=== PATIENT | female | born 1955 | race Caucasian/White ===

== ENCOUNTER 2020-12-17 08:57 | Inpatient (IN) ==
--- NOTE | 2020-12-02 08:49 | PAT Medication Instructions ---
Medication Instructions Date of Service December 02, 2020 Home Medications acetaminophen [Tylenol Extra Strength] 1,000 mg PO Q6H PRN baclofen 10 mg PO BID PRN gabapentin 100 mg PO QAM gabapentin 300 mg PO HS levetiracetam [Keppra] 1,000 mg PO BID meloxicam 15 mg PO QAM omeprazole 20 mg PO QAM peg 400-propylene glycol (PF) [Systane (PF)] 2 drp OPHTHALMIC (EYE) BID PRN ASK your surgeon for instructions meloxicam 15 mg PO QAM DO NOT take the morning of surgery baclofen 10 mg PO BID PRN Take morning of surgery With a small sip of water, OTHERWISE NOTHING TO EAT OR DRINK AFTER MIDNIGHT: acetaminophen [Tylenol Extra Strength] 1,000 mg PO Q6H PRN (okay to take up to 4 hours prior to surgery if needed) gabapentin 100 mg PO QAM levetiracetam [Keppra] 1,000 mg PO BID omeprazole 20 mg PO QAM peg 400-propylene glycol (PF) [Systane (PF)] 2 drp OPHTHALMIC (EYE) BID PRN (if needed) Take evening before surgery acetaminophen [Tylenol Extra Strength] 1,000 mg PO Q6H PRN (if needed) baclofen 10 mg PO BID PRN (if needed) gabapentin 300 mg PO HS levetiracetam [Keppra] 1,000 mg PO BID peg 400-propylene glycol (PF) [Systane (PF)] 2 drp OPHTHALMIC (EYE) BID PRN (if needed) Other Notes If you have any questions please call us at [phone] or [phone] or [phone] or [phone]
--- NOTE | 2020-12-04 09:42 | Anesthesiology Consultation ---
Date of Service December 04, 2020 Assessment & Plan (1) Encounter for pre-operative examination: Per assessment on 12/04: Travel screen- Lives in [place]. Uses PPE. No known COVID-19 positive contacts or current COVID-19 related symptoms. Surgeon arranging preop COVID testing (franc 2/; [facility]). Awaiting results. Chart Review Chart Review: Acceptable Risk for Surgery and Patient seen in Pre Admission Test ing Teaching & Discussion Pre-Anesthesia Teaching/Discussion Notes: Instructed NPO after midnight before surgery,except medications with 15 cc of water. Medication instructions provided according to the PAT guidelines. History Surgery Operation Date: 12/17/20 10:05 Proposed Procedures p L4-S1 Decompression and Fusion, Spinal Cord Monitoring - Nelson Cassidy DO Height/Weight Height: 5 ft 5 in Weight: 100.3 kg Allergies Allergy/AdvReac Type Severity Reaction Status Date / Time Sulfa (Sulfonamide Allergy Unknown Itching Verified 12/04/20 08:39 Antibiotics) codeine AdvReac Unknown N/V Verified 12/04/20 08:39 Medications Home Medications Medication Instructions Recorded Confirmed Last Taken acetaminophen [Tylenol Extra 1,000 mg PO Q6H PRN 11/18/20 11/18/20 Unknown Strength] gabapentin 100 mg PO QAM 11/18/20 11/18/20 Unknown gabapentin 300 mg PO HS 11/18/20 11/18/20 Unknown levetiracetam [Keppra] 1,000 mg PO BID 11/18/20 11/18/20 Unknown meloxicam 15 mg PO QAM 11/18/20 11/18/20 Unknown omeprazole 20 mg PO QAM 11/18/20 11/18/20 Unknown peg 400-propylene glycol (PF) 2 drp OPHTHALMIC (EYE) BID PRN 11/18/20 11/18/20 Unknown [Systane (PF)] Past Medical History Medical History GERD (gastroesophageal reflux disease) controlled History of seizure single seizure post-op brain meningioma excision (1997), controlled on Keppra, follows with Dr. Delgado Kidney stones Obesity Osteoarthritis SVT (supraventricular tachycardia) hx ablation 10 years ago, no issues since Temporomandibular joint disorder hx, no locking Exercise / Class Metabolic Activity II 4-5 Yardwork/Stairs/Walk up hill (one flight of stairs (no chest pain/no sob)) Past Family History Family History Sister Family hx of colon cancer Past Surgical History Surgical History H/O prior ablation treatment History of arthroscopy R/L knee History of brain surgery for meningioma (1997) History of cardiac cath 10+ year ago > no stents History of section x4 History of cholecystectomy History of colonoscopy History of tonsillectomy Past Anesthesia History No Hx of Anesthesia Complications and No Family Hx of Anesthesia Complications History of PONV No Hx of PONV and No Hx of Motion Sickness Social History Smoking Status: Never smoker Do You Dip or Chew Tobacco: No Hx Alcohol Use: No Hx Substance Use: No Review of Systems Rare palpitations (no recent issues). Patient denies chest pain, shortness of breath, dyspnea on exertion, fever, chills, cough, wheezing. Physical Exam Vital Signs VITALS BP 146/86 P 74 TEMP 98.4 SP02 96%RA RESP 16 PHYSICAL Full neck and c-spine range of motion (mild cervicalgia with extension, per patient this is a chronic issue). Full TMJ range of motion. TMD 3 finger breaths Mallampati Score 2 Dentition: intact Lungs: clear throughout to auscultation Cardiac: regular rate and rhythm, no murmurs noted Spine: normal Carotid arteries: negative bruit Extremities: no edema Testing Laboratory Results 12/04/20 10:13 12/04/20 10:13 PT 11.4 Seconds (9.0-12.0) 12/04/20 10:13 INR 1.1 (0.9-1.1) 12/04/20 10:13 APTT 27.4 Seconds (21.0-31.0) 12/04/20 10:13 Urine Color Yellow 12/04/20 10:13 Urine Appearance Clear (Clear) 12/04/20 10:13 Urine pH 7.0 (4.5-7.5) 12/04/20 10:13 Ur Specific [place] 1.015 (1.000-1.030) 12/04/20 10:13 Urine Protein Negative (Negative) 12/04/20 10:13 Urine Glucose (UA) Negative (Negative) 12/04/20 10:13 Urine Ketones Negative (Negative) 12/04/20 10:13 Urine Nitrite Negative (Negative) 12/04/20 10:13 Ur Leukocyte Esterase Negative (Negative) 12/04/20 10:13 Blood Type A Positive 12/04/20 10:13 Antibody Screen NEGATIVE 12/04/20 10:13 Electrocardiogram Date: 12/04/20 Findings: + NSR @ (70) Chest X-Ray Date: 12/04/20 FINDINGS: The lungs are clear. Cardiac silhouette is normal in size. No pleural effusions. No pneumothorax. Mildly tortuous thoracic aorta. Prior cholecystectomy. IMPRESSION: No acute process.
[2020-12-04 10:50] LABS: Basophils # (auto) 0.02 K/uL (0-0.2); Basophils % (auto) 0.4 %; Eosinophils # (auto) 0.18 K/uL (0-0.5); Eosinophils % (auto) 3.9 %; Hematocrit (blood only) 41.9 % (37-47); Hemoglobin 14.2 g/dL (12.0-16.0); Lymphocytes # (auto) 1.17 K/uL (1.2-3.4); Lymphocytes % (auto) 25.7 %; Mean Corpuscular Hemoglobin 29.7 pg (25-34); Mean Corpuscular Hgb Conc 33.9 g/dL (32-36); Mean Corpuscular Volume 87.7 fL (80-100); Mean Platelet Volume 10.1 fL (7.4-10.4); Monocytes % (auto) 6.6 %; Neutrophils # (auto) 2.89 K/uL (1.4-6.5); Neutrophils % (auto) 63.4 %; Platelet Count 226 K/uL (130-400); RDW Coefficient of Variation 12.3 % (11.5-14.5); RDW Standard Deviation 39.4 fL (36.4-46.3); Red Blood Count 4.78 M/uL (4.2-5.4); White Blood Count 4.56 K/uL (4.8-10.8)
[2020-12-04 10:54] LABS: Appearance Urine Clear (Clear); Bilirubin Urine Negative (Negative); Blood Urine Negative (Negative); Color Urine Yellow; Glucose Urine UA Negative (Negative); Ketones Urine Negative (Negative); Leukocyte Esterase Urine Negative (Negative); Nitrite Urine Negative (Negative); Protein Urine Negative (Negative); Specific Gravity Urine 1.015 (1.000-1.030); Urobilinogen Urine Negative (Negative)
[2020-12-04 10:59] LABS: BUN Creatinine Ratio 33.5 (10-20); Calcium 8.9 mg/dl (8.5-10.1); Creatinine Clr Calc Pharmacy 101.7 ml/min; Est GFR (African American) 107.6; Est GFR (Non-African American) 92.8; Potassium 4.3 mmol/L (3.5-5.1)
[2020-12-04 11:01] LABS: INR 1.1 (0.9-1.1); Partial Thromboplastin Time 27.4 Seconds (21.0-31.0); Prothrombin Time 11.4 Seconds (9.0-12.0)
--- NOTE | 2020-12-04 11:03 | XRay Report ---
XR chest Pre-admission PA/Lat HISTORY: Preop. COMPARISON: None. FINDINGS: The lungs are clear. Cardiac silhouette is normal in size. No pleural effusions. No pneumot horax. Mildly tortuous thoracic aorta. Prior cholecystectomy. IMPRESSION: No acute process. ACT 112: Negative or not required by law. Electronically signed by: Armaan Tan M.D. 12/04/2020 11:02 AM
--- NOTE | 2020-12-04 16:56 | Electrocardiogram Report ---
Test Reason : Blood Pressure : / mmHG Vent. Rate : 070 BPM Atrial Rate : 070 BPM P-R Int : 160 ms QRS Dur : 088 ms QT Int : 388 ms P-R-T Axes : 064 074 054 degrees QTc Int : 419 ms Normal sinus rhythm Normal ECG No previous ECGs available Confirmed by Andrew Noble ([id number]) on 12/04/2020 4:56:18 PM Referred By: Nelson Cassidy Confirmed By:Waldo Noble
[~2020-12-17 08:57] MED LIST: ACETAMINOPHEN 500 MG TAB PO SCH; CeleBREX 200 MG CAP PO SCH; DEXAMETHASONE SOD INJ 4 MG/ML VIAL ONE; GABAPENTIN 300 MG CAP PO SCH; GLYCOPYRROLATE 0.2 MG/ML VIAL ONE; LIDOCAINE HCL 2% 2 ML VIAL/AMP(20MG/ML) INFIL ONE; LR 15ML/HR IV SCH; MIDAZOLAM HCL 1 MG/ML 2ML VIAL ONE; NEOSTIGMINE METHYLSULFATE 1 MG/ML 10ML VIAL ONE; ONDANSETRON INJ 2 MG/ML 2 ML VIAL ONE; PROPOFOL IV EMULSION 10 MG/ML 20 ML VIAL IV ONE; ROCURONIUM BROMIDE 10 MG/ML 5 ML VIAL IV ONE; ceFAZolin 2000MG 2,000 MG/15 ML SYR IV SCH; ePHEDrine sulfate 50 MG/ML SYR ONE; fentaNYL citrate 100 MCG/2 ML VIAL ONE
[2020-12-17] MEDS ORDERED: MEPERIDINE HCL 25 MG/ML CARP/VIAL IV PRN (09:14)
[2020-12-17] MEDS ORDERED: LABETALOL HCL IV 5 MG/ML 20ML IV PRN (09:14)
[2020-12-17] MEDS ORDERED: ePHEDrine sulfate 50 MG/ML AMP IV PRN (09:14)
[2020-12-17] MEDS ORDERED: ATROPINE SULFATE 0.1 MG/ML 10ML SYR IV PRN (09:14)
[2020-12-17] MEDS ORDERED: PHENYLEPHRINE 100MCG/ML 5ML SYR IV PRN (09:14)
[2020-12-17] MEDS ORDERED: ONDANSETRON INJ 2 MG/ML 2 ML VIAL IV PRN ×2 (09:14→15:01)
--- NOTE | 2020-12-17 10:12 | History & Physical Bridge Note ---
Date of Service December 17, 2020 History & Physical Bridge Note I have examined the patient, reviewed the History & Physical and in the interval since the performance of the History & Physical I have noted the following changes of clinical significance: no changes noted
--- NOTE | 2020-12-17 10:13 | History & Physical Report ---
Date of Service December 17, 2020 Assessment & Plan (1) Neurogenic claudication due to lumbar spinal stenosis: Admission and Anticipated Discharge Date Admission Date: L4-S1 decompression fusion History of Present Illness Chief Complaint: Back and bilateral leg pain Primary Care Provider: Daniel Lindquist MD This is a 65-year-old female who presents with chronic persistent back and bilateral leg pain. After failing course of nonoperative care is here for surgical invention. Allergies Allergy/AdvReac Type Severity Reaction Status Date / Time Sulfa (Sulfonamide Allergy Unknown Itching Verified 12/17/20 09:23 Antibiotics) codeine AdvReac Unknown N/V Verified 12/17/20 09:23 Home Medications Medication Instructions Recorded Confirmed Type acetaminophen [Tylenol Extra 1,000 mg PO Q6H PRN 11/18/20 12/17/20 History Strength] gabapentin 100 mg PO QAM 11/18/20 12/17/20 History gabapentin 300 mg PO HS 11/18/20 12/17/20 History levetiracetam [Keppra] 1,000 mg PO BID 11/18/20 12/17/20 History meloxicam 15 mg PO QAM 11/18/20 12/17/20 History omeprazole 20 mg PO QAM 11/18/20 12/17/20 History peg 400-propylene glycol (PF) 2 drp OPHTHALMIC (EYE) BID PRN 11/18/20 12/17/20 History [Systane (PF)] Past Med/Surg History Medical History GERD (gastroesophageal reflux disease) controlled History of seizure single seizure post-op brain meningioma excision (1997), controlled on Keppra, follows with Dr. Delgado Kidney stones Obesity Osteoarthritis SVT (supraventricular tachycardia) hx ablation 10 years ago, no issues since Temporomandibular joint disorder hx, no locking Surgical History H/O prior ablation treatment History of arthroscopy R/L knee History of brain surgery for meningioma (1997) History of cardiac cath 10+ year ago > no stents History of section x4 History of cholecystectomy History of colonoscopy History of tonsillectomy Family History Sister Family hx of colon cancer Social History Smoking Status: Never smoker Second Hand Exposure: No; Do You Dip or Chew Tobacco: No; Hx Alcohol Use: No Hx Substance Use: No Preferred Language: Uzbek Communication Ability: Effective Cable Assembler Required: No Beliefs That Will Affect Care: None Current Living Situation: Spouse Other Information That Helps Us Care for You: No Feels Safe at Home: Yes Safety Concerns: Feels Safe At This Time Assistive Devices: Glasses Physical Exam Physical Exam: Patient is alert and oriented Heart regular rhythm Lungs clear to auscultation Results & Data ([facility]) Vital Signs (Past 12 Hours) Vital Signs Temp Pulse Resp BP Pulse Ox 12/17/20 09:37 36.5 C 92 H 20 183/90 H 97
[2020-12-17] MEDS ORDERED: BACITRACIN INJ 50,000 UNIT VIAL ONE (10:26)
[2020-12-17] MEDS ORDERED: BUPIVACAINE/EPINEPHRINE 0.5% MPF 1:200,000 30 ML VIAL ONE (10:26)
[2020-12-17] MEDS ORDERED: PHENYLEPHRINE HCL 10 MG/ML VIAL ONE (11:07)
[2020-12-17] MEDS ORDERED: ePHEDrine sulfate 50 MG/ML AMP ONE (11:31)
[2020-12-17] MEDS ORDERED: fentaNYL citrate 100 MCG/2 ML VIAL ONE (12:50)
--- NOTE | 2020-12-17 13:19 | Fluoroscopy Report ---
INTRAOPERATIVE RADIOGRAPHS CLINICAL HISTORY: L4-S1 spinal fusion. Fluoroscopy time: 33 seconds. FINDINGS: 2 spot fluoroscopic views of the lumbar spine are presented. There has been discectomy at L 4-L5 and L5-S1 with laminectomy and posterior fusion from L4-S1. Interpedicular screws are present at all levels. The orthopedic hardware appears intact. IMPRESSION: Intraoperative images from L4-S1 spinal fusion as above. Electronically signed by: Antoine Romo M.D. 12/17/2020 1:18 PM
--- NOTE | 2020-12-17 13:23 | Operative Report ---
Post Operative Report Pre & Post Diagnosis Operation Date: 12/17/20 10:25 Pre-Op Diagnosis: Spinal Stenosis, Lumbar Region with Neurogenic Claudication Spondylolisthesis L4-L5 Post-Op Diagnosis: Spinal Stenosis, Lumbar Region with Neurogenic Claudication Spondylolisthesis L4-L5 I identified the patient and participated in the time-out.: Yes Procedure Operation Date: 12/17/20 10:25 Actual Procedures #1 lumbar decompression bilateral medial facetectomies and foraminotomies L3-4, L4-5 and L5-S1 peer #2 posterior spinal fusion L4-5 L5-S1. 3 patient posterior instrumentation L4-5 L5-S1 per #4 interbody fusion L4-5 L5-S1. #5 placement peek cage 11 x 22 mm at L4-5 L5-S1. #6 placement locally harvested morselized autograft in the posterior gutters. #7 placement infuse collagen sponge, master graft and posterior gutters and ostial amp interbody space. Surgeon Nelson Cassidy, DO Band And Cuff Cutter None Estimated Blood Loss 900 Findings See Below The patient is 5 foot 5 inches tall weighing over 100 kg with a BMI in excess of 36. Body habitus combined with an EBL greater than 100 cc created significant technical difficulty requiring her deepest retractors longus instruments in order to perform her procedure. This had at least 50% increase to the operative time. Specimens None Indications This is a 65-year-old female who presents with above-mentioned diagnosis after failing course of nonoperative care she is here for surgical intervention. Description of Procedure Patient met with properly case cussed the question just with them and patient was taken back to op suite underwent an patient placed in prone position the [place] table top Mario frame. All bony prominences well-padded eyes inspected to ensure no external pressure placed upon them. This point the lumbar spine was prepped and draped in a sterile fashion. Sharp dissection with the assistance of Bovie cautery was performed down to and exposing the lamina and transverse processes of L4-L5 and the sacral ala bilaterally. From a caudal cephalad fashion complete laminectomy of L5 L4 and partial laminectomy of L3 was performed including bilateral medial facetectomies and foraminotomies addressing severe spinal stenosis. Pedicle screws were then placed in L4-L5 and S1 b ilaterally with assistance of fluoroscopy and the proper sized mian placed. By way of a transfemoral approach and left complete discectomy of L5-S1 was performed endplates curetted to subcortical bleeding bone and open by 26 mm peek cage filled osteobone graft tapped in position. Then proceeded L4-[address] of a transforaminal portion left complete discectomy performed endplates curetted to subcortical mean bone and again 11 x 26 mm peek cage filled with osteobone graft tapped in position. Rods were then locked in final position bilaterally. The transverse processes of L4-L5 and sacral ala burred to subcortical bleeding bone. Infuse collagen sponge master graft local autograft was placed in posterior gutters. 15 round NATO drain inserted. The incision was then closed with 1 Vicryl the fascia 2-0 Vicryl subcutaneously and 4 Monocryl for final skin closure. Steri-Strip sterile dressings placed. Patient waken taken PACU stable condition. Please note spinal cord monitoring was utilized at the procedure no changes noted. I attest to the content of the Intraoperative Record and any orders documented therein. Any exceptions are noted below.
[2020-12-17] MEDS: fentaNYL citrate 100 MCG/2 ML VIAL IV PRN ×4 (13:37→13:53)
[2020-12-17] MEDS: HYDROmorphone INJ 1 MG/ML SYRINGE IV PRN ×6 (13:58→14:23)
[2020-12-17 14:14] LABS: Hematocrit (blood only) 34.4 % (37-47); Hemoglobin 11.6 g/dL (12.0-16.0)
--- NOTE | 2020-12-17 14:53 | Anesthesiology Progress Note ---
Date of Service December 17, 2020 Anesthesia Post Procedure Vital Signs Vital Signs: Temp Pulse Pulse Resp BP BP Pulse Ox 12/17/20 14:40 36.2 C L 69 16 108/60 98 12/17/20 14:30 64 17 102/54 L 100 12/17/20 14:20 74 16 114/62 98 12/17/20 14:10 67 15 118/64 93 12/17/20 14:00 64 12 111/60 100 12/17/20 13:50 70 14 114/72 100 12/17/20 13:40 70 11 L 125/64 100 12/17/20 13:30 36.1 C L 78 16 147/105 H 99 12/17/20 09:37 36.5 C 92 H 20 183/90 H 97 Pain Intensity Back: Pain Intensity: 2 Transfer of Care Handoff Completed per policy Notes Mental Status: alert / awake / arousable Patient Amnestic to Procedure: Yes Nausea / Vomiting: adequately controlled Pain: adequately controlled Airway Patency, RR, SpO2: stable & adequate BP & HR: stable & adequate Hydration State: stable & adequate Anesthetic Complications: no major complications apparent and Pt Satisfied with anesthetic care Notes: The patient is awake and comfortable. Postop hgb is 11.6.
[2020-12-17] MEDS ORDERED: DO NOT ADMINISTER FLU VACCINE PRN (15:01)
[2020-12-17] MEDS ORDERED: PROMETHAZINE HCL 12.5 MG in SODIUM CHLORIDE 0.9% 50 ML IV PRN (15:01)
[2020-12-17] MEDS ORDERED: METOCLOPRAMIDE HCL INJ 5 MG/ML 2 ML VIAL IV PRN (15:01)
[2020-12-17] MEDS ORDERED: MAGNESIUM HYDROXIDE SUSP 30 ML UDC PO PRN (15:01)
[2020-12-17] MEDS ORDERED: LORazepam 0.5 MG/1 ML VIAL IV PRN (15:01)
[2020-12-17] MEDS ORDERED: hydrOXYzine HCl 25 MG TAB PO PRN (15:01)
[2020-12-17] MEDS ORDERED: SOD PHOSPHATE/SOD BIPHOSPHATE ENEMA 132 ML BTL PR PRN (15:01)
[2020-12-17] MEDS ORDERED: HYDROmorphone INJ 0.5 MG/0.5 ML SYR IV PRN (15:01)
[2020-12-17] MEDS ORDERED: FAMOTIDINE 20 MG TAB PO PRN (15:01)
[2020-12-17] MEDS ORDERED: ALUMINUM/MAGNESIUM SUSP 30 ML UDC PO PRN (15:01)
[2020-12-17] MEDS ORDERED: ONDANSETRON 4 MG OD TAB PO PRN (15:01)
[2020-12-17] MEDS ORDERED: ACETAMINOPHEN 1,000 MG/100 ML VIAL IV PRN (15:01)
[2020-12-17] MEDS ORDERED: traMADol HCL 50 MG TABLET PO PRN (15:01)
[2020-12-17] MEDS ORDERED: NALOXONE HCL 0.4 MG/1 ML VIAL/CARP IV PRN (15:01)
[2020-12-17] MEDS ORDERED: DO NOT ADMINISTER PNEUMOCOCCAL VACCINE PRN (15:01)
[2020-12-17] MEDS ORDERED: LORazepam 0.5 MG TAB PO PRN (15:01)
[2020-12-17] MEDS ORDERED: diphenhydrAMINE Capsule 25 MG CAP PO PRN (15:01)
[2020-12-17] MEDS ORDERED: HYDROmorphone INJ 1 MG/ML SYRINGE IV PRN (15:01)
[2020-12-17] MEDS ORDERED: ARTIFICIAL TEARS OP PRN (15:30)
[2020-12-17] MEDS: SODIUM CHLORIDE 0.9% 1000ML 1,000 ML IV SCH ×2 (15:46→21:33)
[2020-12-17] MEDS: ceFAZolin 2000MG 2,000 MG/15 ML SYR IV SCH (17:46)
[2020-12-17] MEDS: oxyCODONE HCL IR 5 MG TAB (IMMEDIATE RELEASE) PO PRN ×2 (17:46→23:28)
--- NOTE | 2020-12-17 17:56 | Consultation ---
Date of Consultation December 17, 2020 Assessment & Plan (1) Neurogenic claudication due to lumbar spinal stenosis: s/p L4-S1 spinal fusion, POD #0 Dr. Cassidy ebl 900ml, NATO drain 190ml tolerated procedure well pain/wound management per ortho activity and therapy as directed by ortho wean 02 as able, encourage incentive spirometry monitor h&H (2) Acute blood loss anemia: pre op H&H 14.2/41.9 post op 11.6/34.4 EBL 900ml monitor daily transfuse hgb < 7.0 or symptomatic (3) History of seizure: 1 episode of seizure s/p brain surgery controlled with keppra D/C tramadol as it can lower seizure threshold (4) GERD (gastroesophageal reflux disease): continue PPI (5) Obesity: BMI 36.8 encourage diet and lifestyle modifications Dispo: per Dr. Cassidy Primary: Dr. Lindquist FULL CODE Pt was seen and examined in collaboration with Dr. Alonzo, please see addendum starting 12/18/20 pt will be under the care of Dr. Smith Thank you for this consultation. We will follow the patient with you during their hospital stay. You [facility] a [facility] via pager @ [phone]. Supervising Physician Co-Signing Physician Notes Pt seen and examined by me, care coordinated with Malathi Marshall PA-C, pls refer to her note above for further detail. Pt is a 65 y/o F w/ hx of meningioma s/p resection with seizure post op controlled on Keppra, GERD, neuropathy, hx of nephrolithiasis, chronic neck pain with radiculopathy who presented for elective lumbar procedure by Dr. Cassidy. She underwent L4-S1 spinal fusion. She tolerated procedure well. She had significant blood loss with 900ml estimated. No chest pain, sob, cough. Pt is sitting up in bed, in NAD. She is awake and answering questions appropriately, currently using supp. O2. Lung CTAB no wheezing, rhonchi, crackles. Heart sounds regular. Abdomen soft, nontender, nondistended. Moves extremities spontaneously. Skin is warm and dry, well perfused. Acute blood loss anemia - monitor H&H, try to wean off O2, monitor resp. status. Dangelo Alonzo MD History of Present Illness Requesting Physician: Dr. Cassidy Reason for Consultation: Post op medical management Attending Physician: Nelson Cassidy DO History of Present Illness This is a 65 yr old F who has a significant PMH of meningioma s/p resection with seizure post op controlled on Keppra, GERD, neuropathy, hx of nephrolithiasis, chronic neck pain with radiculopathy who presents for elective lumbar procedure by Dr. Cassidy. She underwent L4-S1 spinal fusion. She tolerated procedure well. She had significant blood loss with 900ml estimated. Currently c/o R dry eye, burning sensation. Denies vision loss, blurry/double vision, pain with eye movement. Hx of dry eye and just took artifical tear eye gtts with mild relief. Denies f/c/s, dizziness, lightheaded, chest pain, sob, cough, n/v/d, or abdominal pain. She has a ramirez cath in place. She is tolerating a liquid diet. No recent seizure hx, last was post op. Allergies Allergy/AdvReac Type Severity Reaction Status Date / Time Sulfa (Sulfonamide Allergy Unknown Itching Verified 12/17/20 09:23 Antibiotics) codeine AdvReac Unknown N/V Verified 12/17/20 09:23 Home Medications Medication Instructions Recorded Confirmed Type Systane (PF) 2 drp OPHTHALMIC (EYE) BID PRN 11/18/20 12/17/20 History acetaminophen 1,000 mg PO Q6H PRN 11/18/20 12/17/20 History gabapentin 100 mg PO QAM 11/18/20 12/17/20 History gabapentin 300 mg PO HS 11/18/20 12/17/20 History levetiracetam [Keppra] 1,000 mg PO BID 11/18/20 12/17/20 History meloxicam 15 mg PO QAM 11/18/20 12/17/20 History omeprazole 20 mg PO QAM 11/18/20 12/17/20 History oxycodone 5 mg PO Q6H PRN #30 tab 12/18/20 Rx tramadol 50 mg PO Q6H PRN #30 tab 12/18/20 Rx Patient History Medical History (Updated 12/17/20 @ 18:08 by Malathi Marshall PA-C) GERD (gastroesophageal reflux disease) controlled History of seizure single seizure post-op brain meningioma excision (1997), controlled on Keppra, follows with Dr. Delgado Kidney stones Obesity Osteoarthritis SVT (supraventricular tachycardia) hx ablation 10 years ago, no issues since Temporomandibular joint disorder hx, no locking Surgical History H/O prior ablation treatment History of arthroscopy R/L knee History of brain surgery for meningioma (1997) History of cardiac cath 10+ year ago > no stents History of section x4 History of cholecystectomy History of colonoscopy History of tonsillectomy Family History Sister Family hx of colon cancer Social History Smoking Status: Never smoker Second Hand Exposure: No; Do You Dip or Chew Tobacco: No; Hx Alcohol Use: No Hx Substance Use: No Preferred Language: Belarusian Communication Ability: Effective Circular Shear Operator Required: No Beliefs That Will Affect Care: None marital status: Current Living Situation: Spouse Other Information That Helps Us Care for You: No Feels Safe at Home: Yes Safety Concerns: Feels Safe At This Time Assistive Devices: Glasses and Walker Review of Systems Review of Systems: All systems reviewed & are unremarkable except as noted in HPI & below Physical Exam Physical Exam: Constitutional: WD/WN, F vitals as above, NAD, sitting up in bed, pleasant, conversing easily Head: Normocephalic, Atraumatic Eyes: PERRL, conjunctivae normal, anicteric sclerae ENMT: external ear and nose normal, oropharynx normal Neck: trachea midline, no thyromegaly normal visual inspection Respiratory: normal respiratory effort, lungs clear to auscultation, no wheeze, rales, rhonchi. Normal insp/exp effort, no accessory muscle use Cardiovascular: RRR, no murmur, no edema Vessels: no JVD or carotid bruit Chest: normal inspection of chest Abdomen: normal bowel sounds, soft, nontender, no hepatosplenomegaly Musculoskeletal: no cyanosis or clubbing, extremities motor strength 5/5 Skin: no rashes, warm and dry normal turgor Neurologic: PERRL, EOMI, accommodation nl, no face palsy, no dysarthria CN's II-XI intact bilaterally and moves all extremities Psychiatric: A+Ox3, euthymic affect Lymphatic: no cervical or axillary lymphadenopathy : ramirez cath, yellow urine Results & Data ([facility]) Vital Signs (Past 12 Hours) Vital Signs Temp Pulse Pulse Resp BP BP Pulse Ox 12/17/20 17:00 36.9 C 64 18 131/77 99 12/17/20 16:00 36.9 C 64 16 108/69 98 12/17/20 15:31 36.4 C L 69 16 121/73 95 12/17/20 15:03 36.8 C 64 16 104/69 95 12/17/20 14:40 36.2 C L 69 16 108/60 98 12/17/20 14:30 64 17 102/54 L 100 12/17/20 14:20 74 16 114/62 98 12/17/20 14:10 67 15 118/64 93 12/17/20 14:00 64 12 111/60 100 12/17/20 13:50 70 14 114/72 100 12/17/20 13:40 70 11 L 125/64 100 12/17/20 13:30 36.1 C L 78 16 147/105 H 99 12/17/20 09:37 36.5 C 92 H 20 183/90 H 97 Laboratory Results 12/04 H&H 14.2/41.9 PLT 226 Na 143, K 4.3, bun 21/cr 0.63 Diagnostic Findings Lspine Xray: IMPRESSION: Intraoperative images from L4-S1 spinal fusion as above. CXR: IMPRESSION: No acute process. Medications Administered Hydromorphone HCl (Hydromorphone Inj 0.5 Mg/0.5 Ml Syr) 0.5 mg IV Q3H PRN PRN Reason: MOD pain (scale 4-6) & Pre PT Stop: 12/31/20 15:00 Last Admin: 12/17/20 16:22 Dose: 0.5 mg Documented by: [id number] Lactated Ringer's (Lr) 1,000 mls @ 15 mls/hr IV .Q24H JENNI Stop: 12/18/20 05:59 Last Infusion: 12/17/20 10:42 Dose: 0 mls/hr Documented by: [id number] Admin: 12/17/20 09:31 Dose: 15 mls/hr Documented by: [id number] Sodium Chloride (Nss 1000ml) 1,000 mls @ 150 mls/hr IV .Q6H40M JENNI Stop: 01/16/21 15:00 Last Admin: 12/17/20 15:46 Dose: 150 mls/hr Documented by: [id number] Cefazolin Sodium (Ancef 2000mg) 2,000 mg in 15 mls @ 3.75 mls/min IV Q8H JENNI; Protocol Stop: 12/18/20 02:03 Last Admin: 12/17/20 17:46 Dose: 3.75 mls/min Documented by: [id number] Oxycodone HCl (Oxycodone Hcl Ir 5 Mg Tab (Immediate Release)) 5 - 10 mg PO Q4H PRN PRN Reason: Pain & Pre PT Stop: 12/31/20 15:00 Last Admin: 12/17/20 17:46 Dose: 10 mg Documented by: [id number] Discontinued Medications Acetaminophen (Acetaminophen 500 Mg Tab) 1,000 mg PO PREOP JENNI Stop: 12/17/20 18:00 Last Admin: 12/17/20 09:32 Dose: 1,000 mg Documented by: [id number] Bacitracin (Bacitracin Inj 50,000 Unit Vial) Confirm Administered Dose 50,000 units .ROUTE .STK-MED ONE Stop: 12/17/20 10:27 Last Admin: 12/17/20 11:10 Dose: 50,000 units Documented by: [id number] Bupivacaine HCl/Epinephrine Bitart (Bupivacaine/Epinephrine 0.5% Mpf 1:200,000 30 Ml Vial) Confirm Administered Dose 30 ml .ROUTE .STK-MED ONE Stop: 12/17/20 10:27 Last Admin: 12/17/20 11:10 Dose: 20 ml Documented by: [id number] Celecoxib (Celebrex 200 Mg Cap) 200 mg PO PREOP JENNI Stop: 12/17/20 18:00 Last Admin: 12/17/20 09:33 Dose: Not Given Documented by: [id number] Fentanyl Citrate (Fentanyl Citrate 100 Mcg/2 Ml Vial) 25 mcg IV Q5M PRN PRN Reason: PACU Use Only-Pain Stop: 12/17/20 17:14 Last Admin: 12/17/20 13:53 Dose: 25 mcg Documented by: [id number] Admin: 12/17/20 13:47 Dose: 25 mcg Documented by: [id number] Admin: 12/17/20 13:42 Dose: 25 mcg Documented by: [id number] Admin: 12/17/20 13:37 Dose: 25 mcg Documented by: [id number] Gabapentin (Gabapentin 300 Mg Cap) 300 mg PO PREOP JENNI Stop: 12/17/20 18:00 Last Admin: 12/17/20 10:22 Dose: 300 mg Documented by: [id number] Hydromorphone HCl (Hydromorphone Inj 1 Mg/Ml Syringe) 0.25 mg IV Q5M PRN PRN Reason: PACU Use Only-Pain Stop: 12/17/20 17:14 Last Admin: 12/17/20 14:23 Dose: 0.25 mg Documented by: [id number] Admin: 12/17/20 14:18 Dose: 0.25 mg Documented by: [id number] Admin: 12/17/20 14:13 Dose: 0.25 mg Documented by: [id number] Admin: 12/17/20 14:08 Dose: 0.25 mg Documented by: [id number] Admin: 12/17/20 14:03 Dose: 0.25 mg Documented by: [id number] Admin: 12/17/20 13:58 Dose: 0.25 mg Documented by: [id number] Cefazolin Sodium (Ancef 2000mg) 2,000 mg in 15 mls @ 3.75 mls/min IV PREOP JENNI; Protocol Stop: 12/17/20 18:00 Last Admin: 12/17/20 10:32 Dose: 3.75 mls/min Documented by: [id number] ECG Rate (beats per minute): 70 Rhythm: normal sinus
[2020-12-17] MEDS ORDERED: ARTIFICIAL TEARS OP OINT 3.5 GM TUBE OP PRN (18:18)
[2020-12-17] MEDS: levETIRAcetam 500 MG TAB PO SCH (19:36)
[2020-12-17] MEDS: GABAPENTIN 300 MG CAP PO SCH (19:37)
[2020-12-17] MEDS: DOCUSATE SODIUM/SENNA 50/8.6MG TAB PO SCH (19:37)
[2020-12-18] MEDS: ceFAZolin 2000MG 2,000 MG/15 ML SYR IV SCH (02:32)
[2020-12-18] MEDS: SODIUM CHLORIDE 0.9% 1000ML 1,000 ML IV SCH ×2 (05:10→11:05)
[2020-12-18 06:24] LABS: Eosinophils # (auto) 0.04 K/uL (0-0.5); Eosinophils % (auto) 0.4 %; Hematocrit (blood only) 30.4 % (37-47); Immature Granulocytes # (auto) 0.02 K/uL (0.00-0.02); Immature Granulocytes % (auto) 0.2 %; Lymphocytes # (auto) 0.99 K/uL (1.2-3.4); Lymphocytes % (auto) 9.8 %; Mean Corpuscular Hemoglobin 28.9 pg (25-34); Mean Corpuscular Hgb Conc 32.9 g/dL (32-36); Mean Corpuscular Volume 87.9 fL (80-100); Mean Platelet Volume 9.7 fL (7.4-10.4); Monocytes # (auto) 0.83 K/uL (0.11-0.59); Monocytes % (auto) 8.2 %; Neutrophils # (auto) 8.24 K/uL (1.4-6.5); Neutrophils % (auto) 81.4 %; Platelet Count 190 K/uL (130-400); RDW Coefficient of Variation 12.6 % (11.5-14.5); RDW Standard Deviation 40.4 fL (36.4-46.3); Red Blood Count 3.46 M/uL (4.2-5.4); White Blood Count 10.12 K/uL (4.8-10.8)
[2020-12-18 07:04] LABS: BUN Creatinine Ratio 23.3 (10-20); Calcium 8.4 mg/dl (8.5-10.1); Creatinine Clr Calc Pharmacy 123.2 ml/min; Est GFR (African American) 114.6; Est GFR (Non-African American) 98.9; Potassium 3.8 mmol/L (3.5-5.1)
[2020-12-18] MEDS: levETIRAcetam 500 MG TAB PO SCH ×2 (08:06→22:00)
[2020-12-18] MEDS: GABAPENTIN 100 MG CAP PO SCH (08:06)
[2020-12-18] MEDS: PANTOprazole 40 MG TAB PO SCH (08:06)
[2020-12-18] MEDS: oxyCODONE HCL IR 5 MG TAB (IMMEDIATE RELEASE) PO PRN ×3 (11:13→22:09)
--- NOTE | 2020-12-18 13:21 | Orthopedic Progress Note ---
Date of Service December 18, 2020 Assessment & Plan (1) Neurogenic claudication due to lumbar spinal stenosis: Admission and Anticipated Discharge Date Admission Date: December 17, 2020 Stable continue encourage physical therapy monitor NATO output anticipate disc harge home in the next few days. Subjective Patient's back pain is controlled leg symptoms markedly improved. Physical Exam Physical Exam: On exam patient is in the chair at the bedside. Has good strength testing. Results & Data ([facility]) Vital Signs (Past 12 Hours) Vital Signs Temp Pulse Resp BP BP Pulse Ox 12/18/20 08:01 36.8 C 78 19 124/73 97 12/18/20 02:39 36.7 C 65 16 107/71 97
[2020-12-18] MEDS: POLYETHYLENE (MIRALAX) 17 GM PACK PO SCH ×3 (15:04→22:09)
--- NOTE | 2020-12-18 17:25 | Hospitalist Progress Note ---
Date of Service December 18, 2020 Assessment & Plan (1) Neurogenic claudication due to lumbar spinal stenosis: s/p L4-S1 spinal fusion, POD #1 Dr. Cassidy ebl 900ml, NATO drain 190ml anemia per below stable overall continue to monitor closely (2) Acute blood loss anemia: pre op H&H 14.2/41.9 post op 11.6/34.4 EBL 900ml --> 10.0 asymptomatic monitor daily transfuse hgb < 7.0 or symptomatic (3) History of seizure: 1 episode of seizure s/p brain surgery controlled with keppra D/C tramadol as it can lower seizure threshold (4) GERD (gastroesophageal reflux disease): continue PPI (5) Obesity: BMI 36.8 encourage diet and lifestyle modifications Dispo: per Dr. Csasidy Primary: Dr. Lindquist FULL CODE Thank you for this consultation. We will follow the patient with you during their hospital stay. You can reach a [facility] via pager @ [phone]. Admission and Anticipated Discharge Date Admission Date: December 17, 2020 Subjective ff up for post op back surgery seen resting in bed, sitting up, comfortable states back pain is adequately controlled ambulated in the halls today with no dizziness, chest pain, palpitations no other symptoms Review of Systems Review of Systems: All systems reviewed & are unremarkable except as noted in Subjective Physical Exam Physical Exam: General- oriented x 3, not in distress, speaks in sentences with no effort or accessory muscle use Eyes- anicteric Neck- no JVD Lungs- clear breath sounds bilaterally, no rales/wheezes Heart- normal rate, regular rhythm; no murmurs Abdomen- normal bowel sounds, nondistended, soft, nontender Extremities- no pretibial edema, no calf tenderness Neuro- alert, oriented x 3; no gross focal neurologic deficits Skin- warm & dry Results & Data Results & Data ([facility]) Vital Signs (Past 12 Hours) Vital Signs Temp Pulse Resp BP Pulse Ox 12/18/20 14:03 36.9 C 89 19 125/74 94 12/18/20 08:01 36.8 C 78 19 124/73 97 Laboratory Results Laboratory Results - last 24 hr 12/18/20 12/18/20 06:03 06:03 WBC 10.12 RBC 3.46 L Hgb 10.0 L Hct 30.4 L MCV 87.9 MCH 28.9 MCHC 32.9 RDW Std Deviation 40.4 RDW Coeff of Kait 12.6 Plt Count 190 MPV 9.7 Immature Gran % (Auto) 0.2 Neut % (Auto) 81.4 Lymph % (Auto) 9.8 Story % (Auto) 8.2 Eos % (Auto) 0.4 Baso % (Auto) 0.0 Neut # (Auto) 8.24 H Lymph # (Auto) 0.99 L Story # (Auto) 0.83 H Eos # (Auto) 0.04 Baso # (Auto) 0.00 Immature Gran # (Auto) 0.02 Sodium 143 Potassium 3.8 Chloride 111 H Carbon Dioxide 27 Anion Gap 5.0 BUN 12 Creatinine 0.52 L Est Cr Clr Drug Dosing 123.2 Est GFR ( Amer) 114.6 Est GFR (Non-Af Amer) 98.9 BUN/Creatinine Ratio 23.3 H Glucose 102 H Calcium 8.4 L
[2020-12-18] MEDS: DOCUSATE SODIUM/SENNA 50/8.6MG TAB PO SCH (22:00)
[2020-12-18] MEDS: GABAPENTIN 300 MG CAP PO SCH (22:00)
[2020-12-19] MEDS: ACETAMINOPHEN 500 MG TAB PO PRN ×3 (00:32→16:38)
[2020-12-19] MEDS: POLYETHYLENE (MIRALAX) 17 GM PACK PO SCH ×3 (05:39→17:33)
[2020-12-19] MEDS: oxyCODONE HCL IR 5 MG TAB (IMMEDIATE RELEASE) PO PRN ×3 (05:40→20:36)
[2020-12-19] MEDS: levETIRAcetam 500 MG TAB PO SCH ×2 (08:12→20:37)
[2020-12-19] MEDS: GABAPENTIN 100 MG CAP PO SCH (08:12)
[2020-12-19] MEDS: PANTOprazole 40 MG TAB PO SCH (08:12)
[2020-12-19] MEDS: DEXAMETHASONE SOD PHOSPHATE 8 MG in SYRINGE 0 ML IV SCH (08:13)
[2020-12-19 10:22] LABS: Basophils # (auto) 0.01 K/uL (0-0.2); Basophils % (auto) 0.1 %; Eosinophils # (auto) 0.04 K/uL (0-0.5); Eosinophils % (auto) 0.4 %; Hematocrit (blood only) 31.3 % (37-47); Hemoglobin 10.3 g/dL (12.0-16.0); Immature Granulocytes # (auto) 0.02 K/uL (0.00-0.02); Immature Granulocytes % (auto) 0.2 %; Lymphocytes # (auto) 0.49 K/uL (1.2-3.4); Lymphocytes % (auto) 5.1 %; Mean Corpuscular Hemoglobin 29.3 pg (25-34); Mean Corpuscular Hgb Conc 32.9 g/dL (32-36); Mean Corpuscular Volume 88.9 fL (80-100); Mean Platelet Volume 9.6 fL (7.4-10.4); Monocytes # (auto) 0.69 K/uL (0.11-0.59); Monocytes % (auto) 7.2 %; Neutrophils # (auto) 8.36 K/uL (1.4-6.5); Platelet Count 176 K/uL (130-400); RDW Coefficient of Variation 12.7 % (11.5-14.5); RDW Standard Deviation 40.9 fL (36.4-46.3); Red Blood Count 3.52 M/uL (4.2-5.4); White Blood Count 9.61 K/uL (4.8-10.8)
[2020-12-19] MEDS ORDERED: MAGNESIUM HYDROXIDE SUSP 30 ML UDC PO PRN (11:48)
[2020-12-19] MEDS ORDERED: MAGNESIUM HYDROXIDE SUSP 30 ML UDC PO ONE (11:48)
--- NOTE | 2020-12-19 13:23 | Orthopedic Progress Note ---
Date of Service December 19, 2020 Assessment & Plan (1) Neurogenic claudication due to lumbar spinal stenosis: Admission and Anticipated Discharge Date Admission Date: December 17, 2020 At this time we will continue physical therapy monitor NATO output anticipate possible discharge home tomorrow. Subjective Back pain controlled leg symptoms improved. Physical Exam Physical Exam: Patient is comfortable is good strength testing. Results & Data ([facility]) Vital Signs (Past 12 Hours) Vital Signs Temp Pulse Resp BP Pulse Ox 12/19/20 11:01 36.8 C 88 16 113/70 94 12/19/20 07:35 36.8 C 86 16 106/70 92
[2020-12-19] MEDS ORDERED: bisacodyL 10 MG SUPP PR PRN (13:25)
--- NOTE | 2020-12-19 17:46 | Hospitalist Progress Note ---
Date of Service December 19, 2020 Assessment & Plan (1) Neurogenic claudication due to lumbar spinal stenosis: s/p L4-S1 spinal fusion, POD #1 Dr. Cassidy ebl 900ml, NATO drain 190ml anemia per below Back pain improving stable overall continue to monitor closely (2) Acute blood loss anemia: pre op H&H 14.2/41.9 post op 11.6/34.4 EBL 900ml -->Stable at 10 asymptomatic transfuse hgb < 7.0 or symptomatic (3) History of seizure: 1 episode of seizure s/p brain surgery controlled with keppra D/C tramadol as it can lower seizure threshold (4) GERD (gastroesophageal reflux disease): continue PPI (5) Obesity: BMI 36.8 encourage diet and lifestyle modifications Dispo: per Dr. Cassidy Primary: Dr. Lindquist FULL CODE Thank you for this consultation. We will follow the patient with you during their hospital stay. You can reach a [facility] via pager @ [phone]. Admission and Anticipated Discharge Date Admission Date: December 17, 2020 Subjective Status post back surgery Seen sitting up in bed, comfortable, in good spirits, not in distress States she feels better today Back pain improving No chest pain, shortness of breath, palpitation, dizziness, headache, nausea Positive constipation, but no abdominal pain or nausea Denies other symptoms Review of Systems Review of Systems: All systems reviewed & are unremarkable except as noted in Subjective Physical Exam Physical Exam: General- oriented x 3, not in distress, speaks in sentences with no effort or accessory muscle use Eyes- anicteric Neck- no JVD Lungs- clear breath sounds bilaterally,No wheezing, no crackles Heart- normal rate, regular rhythm; no murmurs Abdomen- normal bowel sounds, nondistended, soft, nontender Extremities- no pretibial edema, no calf tenderness Neuro- alert, oriented x 3; no gross focal neurologic deficits Skin- warm & dry Results & Data Results & Data ([facility]) Vital Signs (Past 12 Hours) Vital Signs Temp Pulse Resp BP Pulse Ox 12/19/20 14:34 36.7 C 88 16 108/68 91 12/19/20 11:01 36.8 C 88 16 113/70 94 12/19/20 07:35 36.8 C 86 16 106/70 92 Laboratory Results Laboratory Results - last 24 hr 12/19/20 10:10 WBC 9.61 RBC 3.52 L Hgb 10.3 L Hct 31.3 L MCV 88.9 MCH 29.3 MCHC 32.9 RDW Std Deviation 40.9 RDW Coeff of Kait 12.7 Plt Count 176 MPV 9.6 Immature Gran % (Auto) 0.2 Neut % (Auto) 87.0 Lymph % (Auto) 5.1 [place] % (Auto) 7.2 Eos % (Auto) 0.4 Baso % (Auto) 0.1 Neut # (Auto) 8.36 H Lymph # (Auto) 0.49 L [place] # (Auto) 0.69 H Eos # (Auto) 0.04 Baso # (Auto) 0.01 Immature Gran # (Auto) 0.02
[2020-12-19] MEDS: GABAPENTIN 300 MG CAP PO SCH (20:37)
[2020-12-19] MEDS: DOCUSATE SODIUM/SENNA 50/8.6MG TAB PO SCH (20:37)
[2020-12-20] MEDS: POLYETHYLENE (MIRALAX) 17 GM PACK PO SCH ×3 (00:04→13:44)
[2020-12-20] MEDS: ACETAMINOPHEN 500 MG TAB PO PRN ×2 (03:36→13:54)
[2020-12-20] MEDS: oxyCODONE HCL IR 5 MG TAB (IMMEDIATE RELEASE) PO PRN ×2 (06:11→13:55)
[2020-12-20] MEDS: levETIRAcetam 500 MG TAB PO SCH (07:44)
[2020-12-20] MEDS: GABAPENTIN 100 MG CAP PO SCH (07:44)
[2020-12-20] MEDS: DEXAMETHASONE SOD PHOSPHATE 8 MG in SYRINGE 0 ML IV SCH (07:45)
[2020-12-20] MEDS: PANTOprazole 40 MG TAB PO SCH (07:45)
--- NOTE | 2020-12-20 11:26 | Discharge Summary ---
Date of Service December 20, 2020 Admission HPI Per Admitting Provider This is a 65-year-old female who presents with chronic persistent back and bilateral leg pain. After failing course of nonoperative care is here for surgical invention. Principal Diagnosis Lumbar spinal stenosis with spinal listhesis Discharge Data Allergies Allergy/AdvReac Type Severity Reaction Status Date / Time Sulfa (Sulfonamide Allergy Unknown Itching Verified 12/17/20 09:23 Antibiotics) codeine AdvReac Unknown N/V Verified 12/17/20 09:23 Consultations 12/17/20 15:01 Consult Case Management - Discharge Planning Routine Consult Hospitalist Routine Procedures Performed Operation Date: 12/17/20 10:25 Actual Procedures p L4-S1 Decompression and Fusion, interbody cage at L4-L5, interbody cage at L5-S1, application of osteoamp, Spinal Cord Monitoring(Not Applicable) - Nelson Cassidy DO Ordered Studies 12/17/20 10:25 FL fluoroscopy <1hr Routine FL lumbar spine 2-3V Routine Hospital Course (1) Neurogenic claudication due to lumbar spinal stenosis: Patient went lumbar decompression fusion tolerated so was taken to orthopedic floor postoperatively. She was up and ambulating postop day #1 and 2 leg symptoms improved. NATO draining decreasing appropriately. Is on but good strength testing pain well controlled subsequently discharged home. Discharge orders instructions from the chart for further view. Total Time Total Time Spent Total Time Spent (In Minutes): 20 minutes Discharge Plan Discharge Items Patient Disposition: Home - Self-Care Reason For Visit: Spinal Stenosis, Lumbar Region with Neurogenic Discharge Diagnosis: Lumbar spinal stenosis with neurogenic claudication and spinal listhesis L4-L5 Activity: As commented below Non-emergency contact: Primary Care Provider Call non-emergency contact if: you have any medication questions Follow-up/Referrals: Daniel Lindquist MD [Primary Care Provider] - Diet: Regular Addtl Attending Provider Instructions: ACTIVITY RECOMMENDATIONS: SELF CARE INSTRUCTIONS AFTER THORACIC/LUMBAR FUSIONS 1. You may walk to your tolerance. It is good exercise for your legs and back. Expect some back and intermittent leg aches and pains. 2. You may perform "counter-top" level activities (make a sandwich, camilla with a project, etc.). 3. No bending or lifting of more than 10 pounds or back twisting of any nature (roll like a log when turning in bed). 4. You may ride in a car for 20-30 minutes at a time. No driving until after your first visit with your doctor. 5. Frequent changes of position and restricting sitting to 30 minutes at a time will help limit the amount of back spasms and stiffness you may experience. 6. You may discontinue the use of ambulatory aids (cane, crutches, etc.) once your strength and confidence allow. 7. You may printed products assembler the shower and let water strike your incision when you arrive home at least once daily. Do not take a tub bath, sit in a hot tub or go into a swimming pool until after your first recheck in the office. SPECIAL CARE INSTRUCTIONS: VERY IMPORTANT TO READ AND REVIEW A. Your surgical incision has been closed with a cosmetic suture under the skin that will dissolve in about 6 weeks. In 14 days, you can use a pair of clean scissors and cut the suture that is left outside of the skin at the ends of your incision. 1. The small skin tapes can be removed 7 days after surgery if they have not fallen off by that point. 2. You may keep the wound open to air as much as possible to promote healing after post-op day number 5 unless told otherwise by your doctor. 3. If you think the wound looks like it is becoming infected (redness or worsening drainage) and/or you are experiencing fever, chill or worsening back pain and muscle spasms, contact the office so that we may evaluate you as soon as possible. B. Complications are uncommon, but please contact us if you have any signs or symptoms of: 1. wound infection (fever higher than 102.5 degrees F, redness, separation of wound, drainage, or increasing pain from the incision) 2. blood clots in legs (pain, swelling, redness and warmth in legs) 3. urinary tract infection (fever higher than 102.5 degrees F, burning upon urination or increased frequency of urination) 4. nerve problems (inability to walk on your toes or heels, numbness, loss of bowel or bladder control) 5. any other symptoms that concern you C. Please call the office at if you have any concerns or questions about your operation or recovery. D. No smoking! Smoking drastically decreases the chance of a solid fusion. E. Do not take any anti-inflammatory medications (Indocin, Advil, Motrin, Aspirin, Naprosyn, etc.) as these may inhibit the chance of a solid fusion. Tylenol is okay to take for pain. MANAGING PAIN AFTER SPINAL SURGERY 1. Narcotic medication is intended for short-term use and will be provided for surgical pain. Surgical pain usually lasts for a period of 4-6 weeks. Narcotic medication includes Percocet, Vicodin, Darvocet, Tylenol #3 or Lortab. 2. Longer-term pain is more appropriately treated with non-narcotic medication such as Tylenol ES. 3. Muscle spasm is not appropriately treated with narcotics. Muscle relaxers such as Soma, Flexeril or Skelaxin can be used along with Tylenol ES. 4. Remember that we all live with some "aches and pains". This is not unusual or uncommon after an injury or as we get older. a. Back pain is expected and may include muscle spasms for 4 to 6 weeks after surgery. The pain should gradually improve. If the pain worsens for no apparent reason, please contact the office. b. Intermittent leg pain may also be experienced and should not be concerned about unless it worsens for no apparent reason. If so, please contact the office. 5. We will provide appropriate medication within the normal guidelines of their prescribed use. We will also be very cautious and aware of potential abuse and extended duration of patients' medication needs. a. Pain medications are for your comfort and to assist with sleep and rest so that the tissue can heal. They are not provided in order to return to normal activity and should not be used through the day. To do so or worsening pain at night can result from ongoing tissue damage and devel opment of tolerance to the prescribed medicine. 6. Please allow 2-3 days to process refills. Prescriptions will not be mailed but must be picked up at the office. FOLLOW UP VISIT: Keep your scheduled follow-up appointment. Any questions, please call the office at . Pending Studies at Discharge: No Stand-Alone Forms: [employer], Smoking Cessation Medications and DC Order Prescriptions: New oxycodone 5 mg tablet 5 mg PO Q6H PRN (Reason: pain, severe) Qty: 30 RF: 0 tramadol 50 mg tablet 50 mg PO Q6H PRN (Reason: pain, moderate) Qty: 30 RF: 0 Continued levetiracetam [Keppra] 500 mg Tablet 1,000 mg PO BID RF: 0 meloxicam 15 mg Tablet 15 mg PO QAM RF: 0 gabapentin 300 mg Capsule 300 mg PO HS RF: 0 omeprazole 20 mg Capsule,Delayed Release(Dr/Ec) 20 mg PO QAM RF: 0 gabapentin 100 mg Capsule 100 mg PO QAM RF: 0 acetaminophen [Tylenol Extra Strength] 500 mg Capsule 1,000 mg PO Q6H PRN (Reason: Pain) RF: 0 Systane (PF) 0.4-0.3 % Dropperette 2 drp OPHTHALMIC (EYE) BID PRN (Reason: Dry Eyes) RF: 0 Discharge Orders: Discharge Order (Routine); Ordered 12/20/20 Ordered By: Nelson Cassidy Admission Data Admit Date/Time: 12/17/20 13:40 Attending Provider: Nelson Cassidy Admit Provider: Nelson Cassidy Primary Care Provider: Daniel Lindquist Other Providers: Zaynab Mak ; Andrew Smith
== END 2020-12-20 14:06 | disposition home or self-care (01) | DRG 454 ==
LOC: PAT 08:57 → 3E 13:40